=== PATIENT | female | born 1965 | race Caucasian/White ===

== ENCOUNTER 2016-10-12 13:37 | Emergency (ER) | payer OTHER ==
[~2016-10-12] VITALS: Ht 175.3 cm; Wt 74.8 kg
[~2016-10-12 13:37] MED LIST: ASPI81CT89 PO
[2016-10-12 14:28] VITALS: BP 135/88
--- NOTE | 2016-10-12 14:41 | NUR ---
51/F BIB SELF C/O RIGHT HIP & THROBBING PAIN RADIATES TO RIGHT THIGH LEFT LOWER ABD PAIN 8/10,INTERMITTENT.Hx RIGHT HIP OSTEOARTHRITIS, LAP JC, UMBILICAL HERNIA REPAIR, HYSTERECTOMY; STATES SHE HAD SBO, ADHESIONS AND MASS REMOVAL RIGHT LOWER ABD 5-6 YEARS AGO. PT STATES HAS HAD DIARRHEA BUT DENIES N/V. SKIN IS PINK/WARM/DRY; AAOX4 WITH EVEN AND STEADY GAIT; LUNGS CLEAR BL; HR EVEN AND REGULAR; PT DENIES ANY FEVER, CP, SOB, OR COUGH AT THIS TIME; PATIENT STATES PAIN OF 8/10 AT THIS TIME; VSS; PATIENT POSITIONED FOR COMFORT; HOB ELEVATED; BEDRAILS UP X2; BED DOWN. ER MD MADE AWARE OF PT STATUS.
[2016-10-12 14:51] LABS: BASOPHILS # (AUTO) 0.1 K/uL (0.00-0.22); EOSINOPHILS # (AUTO) 0.1 K/uL (0-0.4); HEMATOCRIT 40.7 % (36-48); HEMOGLOBIN 13.8 g/dL (12.0-16.0); LYMPHOCYTES # (AUTO) 1.8 K/uL (2.5-16.5); LYMPHOCYTES % (AUTO) 18.3 % (20.5-51.1); MEAN CORPUSCULAR HEMOGLOBIN 29 pg (27-31); MEAN CORPUSCULAR HGB CONC 34 g/dL (33-37); MEAN CORPUSCULAR VOLUME 85 fL (80-94); MONOCYTES # (AUTO) 0.4 K/uL (0.8-1.0); MONOCYTES % (AUTO) 3.9 % (1.7-9.3); NEUTROPHILS # (AUTO) 7.6 K/uL (1.8-7.7); NEUTROPHILS % (AUTO) 75.8 % (42.2-75.2); PLATELET COUNT (AUTO) 185 K/uL (140-450); RED BLOOD CELL COUNT(AUTO) 4.78 MIL/uL (4.20-5.40); RED CELL DISTRIBUTION WIDTH 11.9 % (11.6-13.7)
[2016-10-12 15:16] LABS: ANION GAP 12.8 (8-16); CARBON DIOXIDE 29.8 mmol/L (21-32); CREATININE 0.9 mg/dL (0.6-1.3); POTASSIUM 3.6 mmol/L (3.5-5.1)
[2016-10-12 15:23] LABS: ALBUMIN 3.8 g/dL (3.4-5.0); TOTAL BILIRUBIN 0.3 mg/dL (0.0-1.0); TOTAL PROTEIN, SERUM 7.3 g/dL (6.4-8.2)
--- NOTE | 2016-10-12 15:28 | NUR ---
PT RETURNED FROM CT VIA W/C ACCOMPANIED BY VENUE MANAGER.
--- NOTE | 2016-10-12 15:28 | NUR ---
PT RETURNED TO BED 7 AT THIS TIME; REPORT RECIEVED FROM AMERICA MENDES; TRANSFER OF CARE AT THIS TIME.
--- NOTE | 2016-10-12 16:48 | NUR ---
PATIENT LEFT WITHOUT DISCHARGE INSTRUCTIONS AND PERSCRIPTION. DR MOHR NOTIFIED.
[2016-10-12 16:54] VITALS: BP 150/87
== END 2016-10-12 16:48 | disposition home or self-care (01) ==
LOC: MED 13:37
DX: G89.29 Other chronic pain (principal); M25.551 Pain in right hip; R10.32 Left lower quadrant pain; M79.604 Pain in right leg; I10 Essential (primary) hypertension; Z85.41 Personal history of malignant neoplasm of cervix uteri; Z90.49 Acquired absence of other specified parts of digestive tract; Z90.710 Acquired absence of both cervix and uterus; Z98.890 Other specified postprocedural states
CPT/HCPCS: 36415; 73700; 80053; 81002; 83690; 85025; 99285

== ENCOUNTER 2016-10-13 15:21 | Inpatient (IN) | payer OTHER ==
[~2016-10-13] VITALS: Ht 175.3 cm; Wt 74.8 kg
--- NOTE | 2016-10-13 15:45 | NUR ---
PATIENT AMBULATED TO BED 3 AT THIS TIME.
[2016-10-13 15:50] LABS: BASOPHILS # (AUTO) 0.2 K/uL (0.00-0.22); BASOPHILS % (AUTO) 1.8 % (0.0-2.0); EOSINOPHILS # (AUTO) 0.2 K/uL (0-0.4); EOSINOPHILS % (AUTO) 1.3 % (0.0-4.0); HEMATOCRIT 42.4 % (36-48); HEMOGLOBIN 13.5 g/dL (12.0-16.0); LYMPHOCYTES # (AUTO) 2.1 K/uL (2.5-16.5); LYMPHOCYTES % (AUTO) 18.1 % (20.5-51.1); MEAN CORPUSCULAR HEMOGLOBIN 27 pg (27-31); MEAN CORPUSCULAR HGB CONC 32 g/dL (33-37); MEAN CORPUSCULAR VOLUME 86 fL (80-94); MONOCYTES # (AUTO) 0.5 K/uL (0.8-1.0); MONOCYTES % (AUTO) 3.9 % (1.7-9.3); NEUTROPHILS # (AUTO) 8.8 K/uL (1.8-7.7); NEUTROPHILS % (AUTO) 74.9 % (42.2-75.2); PLATELET COUNT (AUTO) 195 K/uL (140-450); RED BLOOD CELL COUNT(AUTO) 4.95 MIL/uL (4.20-5.40); RED CELL DISTRIBUTION WIDTH 11.7 % (11.6-13.7); WHITE BLOOD COUNT (AUTO) 11.8 K/uL (4.8-10.8)
--- NOTE | 2016-10-13 15:50 | NUR ---
51F BIB DAUGHTER C/O RIGHT ABDOMINAL PAIN, SHARP, NON-RADIATING, 7/10 X 1 MONTH; ABDOMEN SOFT, TENDER, ACTIVE BOWEL SOUNDS X 4 QUADRANTS; PT DENIES N/V/D AT THIS TIME; PT SEEN AT [place] [facility] YESTERDAY FOR SAME SYMPTOMS; A&OX4, BL LUNG SOUNDS CLEAR, RR EVEN/UNLABORED, SKIN IS WARM/DRY/INTACT AT THIS TIME; PT NOTED W/ SMALL HEALED SCARS TO ABDOMEN/BELLY BUTTON; HX: 2010 (HERNIA, GALL BLADDER REMOVED, HYSTERECTOMY), , CERVIX REMOVED, AMBULATORY W/STEADY GAIT; PT RESTING IN BED W/ HOB ELEVATED AND IN LOWEST POSITION; POSITIONED FOR COMFORT; DAUGHTER AT BEDSIDE; ER MD MADE AWARE OF STATUS. WILL CONTINUE TO MONITOR.
[2016-10-13 15:55] VITALS: BP 163/96
[2016-10-13 16:10] LABS: ANION GAP 13.9 (8-16); CALCIUM 9.4 mg/dL (8.5-10.1); CARBON DIOXIDE 26.9 mmol/L (21-32); CREATININE 0.9 mg/dL (0.6-1.3); POTASSIUM 3.8 mmol/L (3.5-5.1)
[2016-10-13 16:16] LABS: ALBUMIN 4.2 g/dL (3.4-5.0); TOTAL BILIRUBIN 0.4 mg/dL (0.0-1.0); TOTAL PROTEIN, SERUM 7.5 g/dL (6.4-8.2)
--- NOTE | 2016-10-13 16:43 | NUR ---
ER MD DR. MOHR EVALUATING PT AT BEDSIDE.
[2016-10-13] MEDS ORDERED: MORPHINE SULFATE 4 MG/ML SYR IVP ONE (16:50)
--- NOTE | 2016-10-13 17:30 | NUR ---
Patient appears to be resting comfortably in bed. Vital Signs within normal limits. Respirations even and unlabored. WILL CONTINUE TO MONITOR.
--- NOTE | 2016-10-13 18:04 | NUR ---
REPORT GIVEN TO AMERICA MANZANARES.
--- NOTE | 2016-10-13 18:09 | NUR ---
Patient will be admitted to care of ( SURGICAL CONSULT DR. Perez). Admited to [facility]. Will go to room 111B. Belongings list completed. Report to AMERICA MANZANARES.
[2016-10-13] MEDS ORDERED: PIPER/TAZO 3.375GM/D5W PREMIX 50 ML IV ONE (18:10)
--- NOTE | 2016-10-13 18:14 | NUR ---
ER MD DR. MOHR RECIEVED CALL FROM SURGICAL CONSULT DR. Perez; RECIEVED ORDERS FOR ZOSYN; PT ALREADY TAKEN TO FLOOR; CALLED AMERICA MANZANARES; MEDICATION TO BE INFUSED AT [facility].
--- NOTE | 2016-10-13 18:18 | NUR ---
DKSYN ORDERED PER ER MD DR. MOHR NOT AVAILABLE IN [facility]; SPOKE WITH SANDRA IN PHARMACY; SANDRA WILL BRING MEDICATION TO MED SURG ROOM 111B. AMERICA MANZANARES NOTIFIED.
[2016-10-13 18:20] VITALS: BP 125/80
--- NOTE | 2016-10-13 18:20 | NUR ---
RECEIVED FROM ED AAOX4. NO SOB NOTED. NO C/O PAIN AT THIS TIME. IV TO LT HAND PATENT AND INTACT. VITAL SIGNS STABLE.
[2016-10-13] MEDS: PIPER/TAZO 3.375GM/D5W PREMIX 50 ML IV SCH ×2 (18:21→21:18)
--- NOTE | 2016-10-13 18:30 | NUR ---
ZOSYN IV NOT STARTED YET, STAT BLOOD CULTURE ORDERED FROM ED NOT DRAWN YET, PAM FROM LAB MADE AWARE.
--- NOTE | 2016-10-13 18:45 | NUR ---
CLARIFIED WITH DR. JEAN BAPTISTE OVER THE PHONE REGARDING PT'S CT ABD DONE IN ER YESTERDAY, STATED TO REPEAT CT ABD W/O CONTRAST TODAY SINCE PT IS ADMITTED. PT WHEELED TO CT DEPT IN STABLE CONDITION BY [email or web address].
[2016-10-13] MEDS ORDERED: MORPHINE SULFATE 4 MG/ML SYR IVP PRN (18:50)
[2016-10-13] MEDS ORDERED: MORPHINE SULFATE 2 MG/ML SYR IVP PRN (18:50)
[2016-10-13] MEDS ORDERED: ACETAMINOPHEN 325 MG TAB PO PRN (18:50)
[2016-10-13] MEDS ORDERED: ONDANSETRON 4 MG/2 ML VIAL IVP PRN (18:50)
--- NOTE | 2016-10-13 19:00 | NUR ---
PT BACK FROM CT DEPT IN STABLE CONDITION. BLOOD CULTURE DRAWN. WILL ENDORSE TO NEXT SHIFT NURSE TO CONTINUE WITH THE ADMISSION PROCESS.
--- NOTE | 2016-10-13 19:30 | NUR ---
RECEIVED REPORT FROM DAY RN AT BEDSIDE, PATIENT IS AAOX4 ON ROOM AIR, NO SOB OR SIGN OF DISTRESS, PATIENT SKIN IS INTACT, PATIENT DENIES PAIN AT THIS TIME, IV TO LEFT HAND PATENT AND INTACT, DISCUSSED PLAN OF CARE WITH PATIENT, PATIENT VERBALIZED UNDERSTANDING, SAFETY MEASURES CHECKED, CALL LIGHT WITHIN REACH. WILL CONTINUE TO MONITOR. VITAL SIGNS STABLE.
[2016-10-13 19:40] LABS: APPEARANCE,URINE CLEAR (CLEAR); BILIRUBIN,URINE NEGATIVE (NEGATIVE); BLOOD, URINE NEGATIVE (NEGATIVE); COLOR,URINE YELLOW (YELLOW); LEUKOCYTE ESTERASE ,URINE NEGATIVE (NEGATIVE); NITRITE, URINE NEGATIVE (NEGATIVE); PROTEIN,URINE NEGATIVE (NEGATIVE); UGLUCOSE NEGATIVE (NEGATIVE); UROBILINOGEN,URINE 0.2 EU/dL (0.2 - 1)
[2016-10-13 19:54] LABS: BACTERIA,URINE RARE /HPF (None Seen); MUCUS,URINE 2+ /LPF (None Seen); RBC,URINE 0-3 /HPF (0-5); SQUAMOUS EPITHELIAL CELL,UR 0-3 /LPF (0-3 (FEW)); WBC,URINE 0-3 /HPF (0-5)
--- NOTE | 2016-10-13 20:45 | NUR ---
IV ANTIBIOTICS ADMINISTERED PER MD ORDER
[2016-10-13] MEDS ORDERED: INFLUENZA VIRUS VACCINE QUAD 0.5 ML SYR IMVAC PRN (21:40)
--- NOTE | 2016-10-13 21:45 | NUR ---
OH IN TO SEE PATIENT
--- NOTE | 2016-10-13 22:20 | NUR ---
PATIENT SEEN BY DR MARKEL MD EXPLAINED TO PATIENT SHE DID NOT NEED SURGERY BUT GAVE HER THE OPTION TO HAVE IT ANYWAY OR SHE CAN GO HOME, PATIENT OPTED TO GO HOME. PATIENT STATED, " I HAVE A DISABLED CHILD AT HOME AND WOULD LIKE TO LEAVE TONIGHT." PATIENT CALLED DAUGHTER TO PICK HER UP AND BRING CLOTHES. NOTIFIED DR SIGALA, COLLAR SETTER OVERLOCK FOR DR RAMIREZ, DR SIGALA STATED SHE CAN NOT DISCHARGE PATIENT IF ATTENDING HAS NOT SEEN PATIENT, BUT IF PATIENT WANTS TO LEAVE SHE CAN SIGN OUT AMA. EXPLAINED TO PATIENT OPTIONS GIVEN BY THE DOCTOR AND PATIENT WANTED TO LEAVE AND SIGN OUT AMA. EXPLAINED RISKS OF LEAVING AMA, PATIENT VERBALIZED UNDERSTANDING, PATIENT SIGNED AMA PAPERWORK, WRIST BAND REMOVED, IV REMOVED TIP INTACT, BELONGINGS WITH PATIENT, PATIENT LEFT IN PRIVATE VEHICLE WITH FAMILY MEMBER. .
--- NOTE | 2016-10-14 12:59 | NUR ---
CM NOTE RETRO REVIEW FAXED TO [facility] (FAX# [phone], C: [phone]) AND [facility] (FAX# [phone], ATTN: LILLY [phone])
== END 2016-10-13 22:20 | disposition left against medical advice (07) | DRG 254 ==
LOC: MED 15:21 → MTU 17:57
PROVIDERS: ADMIT Internal Medicine Pulmonary Disease; ATTEND Internal Medicine Pulmonary Disease
DX: K35.80 Unspecified acute appendicitis (principal); I10 Essential (primary) hypertension; K38.1 Appendicular concretions; D72.829 Elevated white blood cell count, unspecified; M19.90 Unspecified osteoarthritis, unspecified site; Z53.21 Procedure and treatment not carried out due to patient leaving prior to being seen by health care provider; Z90.49 Acquired absence of other specified parts of digestive tract; Z90.710 Acquired absence of both cervix and uterus; Z98.890 Other specified postprocedural states; Z79.82 Long term (current) use of aspirin; Z79.899 Other long term (current) drug therapy; Z85.41 Personal history of malignant neoplasm of cervix uteri
CPT/HCPCS: 36415; 80053; 81001; 85025; 87040; 87081; 96374; 99285; J0696; J2270; J2543; J7030; J7060

== ENCOUNTER 2017-01-01 14:10 | Emergency (ER) | payer OTHER ==
[~2017-01-01] VITALS: Ht 175.3 cm; Wt 76.7 kg
[2017-01-01 14:23] VITALS: BP 132/94
--- NOTE | 2017-01-01 15:35 | NUR ---
PT TO OVERFLOW.
--- NOTE | 2017-01-01 15:37 | NUR ---
PATIENT PRESENTS TO ED WITH C/O RIGHT ELBOW PAIN . PT STATES SHE HIT HER RIGHT ELBOW AGAINST THE CAR DOOR THIS AM. . DENIES N/V/D; BRUISING NOTED TO RIGHT ELBOW, SKIN IS OTHERWISE PINK/WARM/DRY; AAOX4 WITH EVEN AND STEADY GAIT; LUNGS CLEAR BL; HR EVEN AND REGULAR; PT DENIES ANY FEVER, CP, SOB, OR COUGH AT THIS TIME; PATIENT STATES PAIN OF 5/10 AT THIS TIME; VSS; PATIENT POSITIONED FOR COMFORT; ER MD MADE AWARE OF PT STATUS.
--- NOTE | 2017-01-01 15:39 | NUR ---
ANDRZEJ Jara. EVALUATING PT IN TRIAGE.
[2017-01-01 15:44] VITALS: BP 132/94
--- NOTE | 2017-01-01 15:45 | NUR ---
PATIENT LEFT ER PRIOR TO RECIEVING DISCHARGE INSTRUCTIONS.
== END 2017-01-01 15:45 | disposition home or self-care (01) ==
LOC: MED 14:10
DX: S50.01XA Contusion of right elbow, initial encounter (principal); W22.8XXA Striking against or struck by other objects, initial encounter; Y93.89 Activity, other specified; Y92.89 Other specified places as the place of occurrence of the external cause; Y99.8 Other external cause status
CPT/HCPCS: 73080; 99284

== ENCOUNTER 2017-01-23 14:09 | Emergency (ER) | payer OTHER ==
[~2017-01-23] VITALS: Ht 177.8 cm; Wt 77.7 kg
[2017-01-23 14:13] VITALS: BP 121/76
--- NOTE | 2017-01-23 14:43 | NUR ---
Patient taken from ED lobby to XRAY via wheelchair by tech.
--- NOTE | 2017-01-23 15:33 | NUR ---
Patient ambulated to OF to be evaluated as fast track by Dr. De León.
--- NOTE | 2017-01-23 15:35 | NUR ---
FREDDYD EXPLAINED TO PATIENT RESULTS OF LT. FOOT XR
[2017-01-23 15:37] VITALS: BP 130/99
== END 2017-01-23 15:37 | disposition home or self-care (01) ==
LOC: MED 14:09
DX: M77.8 Other enthesopathies, not elsewhere classified (principal); M79.675 Pain in left toe(s); Z88.5 Allergy status to narcotic agent
CPT/HCPCS: 73630; 99284

== ENCOUNTER 2017-09-19 15:17 | Emergency (ER) | payer SELFPAY ==
--- NOTE | 2017-09-19 15:49 | NUR ---
PATIENT CALLED FROM LOBBY NO ANSWER.
== END 2017-09-19 15:49 | disposition left against medical advice (07) ==
LOC: MED 15:17
DX: M79.643 Pain in unspecified hand (principal); Z53.21 Procedure and treatment not carried out due to patient leaving prior to being seen by health care provider

== ENCOUNTER 2017-11-07 14:18 | Emergency (ER) | payer OTHER ==
[~2017-11-07] VITALS: Ht 175.3 cm; Wt 82.2 kg
[2017-11-07 14:22] VITALS: BP 159/95
--- NOTE | 2017-11-07 14:32 | NUR ---
PT AMBULATES TO BED 3
--- NOTE | 2017-11-07 14:45 | NUR ---
PATIENT PRESENTS TO ED WITH C/O RLQ, RT THIGH PAIN X 1 WK, INTERMITTENT LUQ PAIN "SHOCKING PAIN WHEN URINATING" X 1 MONTH; TAKING TYLENOL;SKIN IS PINK/WARM/DRY; AAOX4 WITH EVEN AND STEADY GAIT; LUNGS CLEAR BL; HR EVEN AND REGULAR; PT DENIES ANY FEVER, CP, SOB, OR COUGH AT THIS TIME; PATIENT POSITIONED FOR COMFORT; HOB ELEVATED; BEDRAILS UP X2; BED DOWN. ER MD MADE AWARE OF PT STATUS.
--- NOTE | 2017-11-07 15:08 | NUR ---
ULTRASOUND AT BEDSIDE AT THIS TIME.
[2017-11-07 15:13] LABS: APPEARANCE,URINE CLEAR (CLEAR); BILIRUBIN,URINE NEGATIVE (NEGATIVE); BLOOD, URINE TRACE-I (NEGATIVE); COLOR,URINE YELLOW (YELLOW); LEUKOCYTE ESTERASE ,URINE NEGATIVE (NEGATIVE); NITRITE, URINE NEGATIVE (NEGATIVE); UGLUCOSE NEGATIVE (NEGATIVE)
[2017-11-07 15:44] LABS: RBC,URINE NONE SEEN /HPF (0-5); WBC,URINE NONE SEEN /HPF (0-5)
[2017-11-07 16:06] VITALS: BP 159/95
--- NOTE | 2017-11-07 16:06 | NUR ---
Patient discharged with v/s stable. Written and verbal after care instructions given and explained. Patient verbalized understanding. Ambulatory with steady gait. All questions addressed prior to discharge. Advised to follow up with PMD.
== END 2017-11-07 16:06 | disposition home or self-care (01) ==
LOC: MED 14:18
DX: R10.31 Right lower quadrant pain (principal); M76.31 Iliotibial band syndrome, right leg; Z88.6 Allergy status to analgesic agent; Z79.82 Long term (current) use of aspirin; Z90.89 Acquired absence of other organs
CPT/HCPCS: 76830; 81001; 99285

== ENCOUNTER 2017-12-05 13:21 | Emergency (ER) | payer OTHER ==
[~2017-12-05] VITALS: Ht 175.3 cm; Wt 82.2 kg
[2017-12-05 13:32] VITALS: BP 138/98
--- NOTE | 2017-12-05 13:38 | NUR ---
PT TAKEN IN WHEELCHAIR TO BED 2
--- NOTE | 2017-12-05 13:40 | NUR ---
PATIENT PRESENTS TO ED WITH COMPLAINTS OF POSSIBLE FRACTURE OF RIGHT ANKLE. PATIENT STATED SHE FELL. CAP REFILL ON RIGHT BIG TOE <3 SEC. DENIES N/V/D; SKIN IS PINK/WARM/DRY; AAOX4 WITH EVEN AND STEADY GAIT; LUNGS CLEAR BL; HR EVEN AND REGULAR; PT DENIES ANY FEVER, CP, SOB, OR COUGH AT THIS TIME; PATIENT STATES PAIN OF 8/10 AT THIS TIME; VSS; PATIENT POSITIONED FOR COMFORT; HOB ELEVATED; BEDRAILS UP X2; BED DOWN. ER MD MADE AWARE OF PT STATUS.
[2017-12-05] MEDS ORDERED: IBUPROFEN 600 MG TAB PO ONE (14:10)
[2017-12-05 14:27] VITALS: BP 138/98
== END 2017-12-05 14:45 | disposition home or self-care (01) ==
LOC: MED 13:21
DX: S99.922A Unspecified injury of left foot, initial encounter (principal); Z88.5 Allergy status to narcotic agent; Z79.899 Other long term (current) drug therapy; X58.XXXA Exposure to other specified factors, initial encounter; Y93.89 Activity, other specified; Y92.89 Other specified places as the place of occurrence of the external cause; Y99.8 Other external cause status
CPT/HCPCS: 73630; 99284

== ENCOUNTER 2018-06-29 11:17 | Emergency (ER) | payer OTHER ==
[~2018-06-29] VITALS: Ht 172.7 cm; Wt 87.5 kg
[2018-06-29 11:24] VITALS: BP 153/98
[2018-06-29] MEDS: KETOROLAC 60 MG/2 ML VIAL IM ONE (12:13)
[2018-06-29 13:50] VITALS: BP 145/92
== END 2018-06-29 13:51 | disposition home or self-care (01) ==
LOC: MED 11:17
DX: I73.9 Peripheral vascular disease, unspecified (principal); Z79.82 Long term (current) use of aspirin; Z88.5 Allergy status to narcotic agent
CPT/HCPCS: 93930; 96372; 99284; J1885; Q0092

== ENCOUNTER 2018-10-18 12:31 | Emergency (ER) | payer OTHER ==
[~2018-10-18] VITALS: Ht 175.3 cm; Wt 81.6 kg
[~2018-10-18 12:31] MED LIST changes: +ASPI-1718 PO; -ASPI81CT89 PO
--- NOTE | 2018-10-18 13:08 | NUR ---
Patient ambulated to bed 2. RN evaluating patient at bedside.
--- NOTE | 2018-10-18 13:17 | NUR ---
PT BIB SELF C/O R FOOT & ANKLE PAIN & SLIGHTLY SWELLING X 1 WEEK. PT REPORTS APPOINTMENT FOR ANGIOGRAM THIS TUESDAY, BUT PAIN IS TOO SEVERE TO WAIT. PT REPORTS CONSTANT SHARP PAIN IN ANTERIOR LATERAL ANKLE AND FOOT AT 9/10. MILD SWELLING NOTED ON ANKLE, ANKLE WARM TO TOUCH, NO REDNESS OR DEFORMITY NOTED. +CMS. VSS. ER MD TO SEE PT. MED HX: INTERMITT CLUADATION BILAT LEGS, PVD, LEFT 5TH TOE JENNIFER (07/28/18) MED: CAN'T REMEMBER
[2018-10-18 15:51] VITALS: BP 135/83
== END 2018-10-18 15:51 | disposition home or self-care (01) ==
LOC: MED 12:31
DX: M25.571 Pain in right ankle and joints of right foot (principal); R03.0 Elevated blood-pressure reading, without diagnosis of hypertension; Z79.82 Long term (current) use of aspirin; Z88.5 Allergy status to narcotic agent
CPT/HCPCS: 73610; 93971; 99284; Q0092

== ENCOUNTER 2019-02-09 15:39 | Emergency (ER) | payer OTHER ==
[~2019-02-09] VITALS: Ht 175.3 cm; Wt 83.0 kg
[2019-02-09 15:42] VITALS: BP 131/81
--- NOTE | 2019-02-09 15:47 | NUR ---
PT AMBULATED TO ER BED 02
[2019-02-09 15:48] VITALS: BP 131/81
--- NOTE | 2019-02-09 15:56 | NUR ---
53F C/O OF A "LUMP" THAT'S GROWING IN L THIGH X MONTHS AND L UPPER ARM X1 YEAR. PT STATES SAME LUMP IN LT UA WAS PRESENT AND SMALL WHEN SHE WAS A CHILD, DX WITH LYMPHOMA. PT STATES THEY HAVE GOTTEN BIGGER AND ARE NOW AFFECTING HER USE OF THE LIMBS- LIMITED ROM IN LEFT ARM. SKIN INTACT. LT UA LUMP APPROXIMATELY [id number], MOBILE, MILD TENDERNESS TO PALPATION. FEELS ENCAPSULATED. LT THIGH LUMP LESS THAN [id number], MOBILE, NON-TENDER. HX: INTERMITTENET CLAUDICATION RX: "A BLOOD THINNER" Addendum: 02/09/19 at 1607 by FRANCISCO CLARIFIED IF PATIENT HAS PAD. PT DENIES AND STATES IT IS A PROBLEM WITH THE MUSCLE, RATHER THAN THE ARTERIES. STATES THE CONDITION IS "INTERMITTENT CLAUDICATION"
--- NOTE | 2019-02-09 16:47 | NUR ---
PATIENT LEFT WITHOUT BEING SEEN BY DR. BAZAN. NO FURTHER CARE PROVIDED FOR PATIENT.
--- NOTE | 2019-02-09 16:47 | NUR ---
PATIENT ELOPED FROM FACILITY. DISCHARGE INSTRUCTIONS NOT GIVEN TO PATIENT. DR. BAZAN NOTIFIED.
== END 2019-02-09 16:47 | disposition left against medical advice (07) ==
LOC: MED 15:39
DX: R22.42 Localized swelling, mass and lump, left lower limb (principal); R22.32 Localized swelling, mass and lump, left upper limb; Z53.21 Procedure and treatment not carried out due to patient leaving prior to being seen by health care provider

== ENCOUNTER 2019-07-03 10:05 | Emergency (ER) | payer OTHER ==
[~2019-07-03] VITALS: Ht 162.6 cm; Wt 92.1 kg
[2019-07-03 10:10] VITALS: BP 189/99
--- NOTE | 2019-07-03 10:10 | NUR ---
Pt ambulated to bed 8.
--- NOTE | 2019-07-03 10:24 | NUR ---
Patient being evaluated by DR BAZAN at bedside.
--- NOTE | 2019-07-03 10:26 | NUR ---
Called code brain.
--- NOTE | 2019-07-03 10:30 | NUR ---
BIB SON W C/O SUDDEN ONSET CONFUSION & "HEART FEELING FUNNY" STARTING APPROX. 8AM THIS MORNING. PER PT SON, SHE HAS BEEN REPEATING HERSELF AND ACTING IF SHE IS CONFUSED SINCE SHE WOKE UP TODAY. NO SLURRED SPEECH, NO FACIAL DROOP NOTED. RUE/RLE GOOD STRENGTH, FIELD COORDINATOR/PUSH STRONG AND EQUAL, LUE/LLE DISPLAYS VERY MILD WEAKNESS. PT APPEARS CONFUSED BUT IS ANSWERING QUESTIONS APPROPRIATELY, AWARE OF NAME, , PLACE, ABLE TO RECALL TODAYS EVENTS. FSBS 122. DENIES PAIN, N/V. PT IS TACHYCARDIC AT 125BPM, BP ELEVATED AT 189/99. O2 99% RA. NO LABORED BREATHING NOTED. BED IN LOW POSITION, SIDE RAIL UP X2 FOR PT SAFTEY, PT PLACED IN GOWN AND ON SNUBBER AT THIS TIME. PT SON AT BEDSIDE.
--- NOTE | 2019-07-03 10:38 | NUR ---
Patient taken to CT scan via gurney by [email or web address], accompanied by RN.
--- NOTE | 2019-07-03 10:48 | NUR ---
Patient returned from CT and placed in bed 8.
[2019-07-03 11:04] LABS: BASOPHILS % (AUTO) 0.4 % (0.0-2.0); EOSINOPHILS % (AUTO) 0.2 % (0.0-4.0); HEMATOCRIT 44.7 % (36-48); HEMOGLOBIN 14.6 g/dL (12.0-16.0); LYMPHOCYTES # (AUTO) 1.7 K/uL (2.5-16.5); MEAN CORPUSCULAR HEMOGLOBIN 29 pg (27-31); MEAN CORPUSCULAR HGB CONC 33 g/dL (33-37); MEAN CORPUSCULAR VOLUME 88.7 fL (80-94); MONOCYTES # (AUTO) 0.3 K/uL (0.8-1.0); MONOCYTES % (AUTO) 3.7 % (1.7-9.3); NEUTROPHILS # (AUTO) 6.8 K/uL (1.8-7.7); NEUTROPHILS % (AUTO) 76.7 % (42.2-75.2); PLATELET COUNT (AUTO) 195 K/uL (140-450); RED BLOOD CELL COUNT(AUTO) 5.04 MIL/uL (4.20-5.40); RED CELL DISTRIBUTION WIDTH 12.3 % (11.6-13.7); WHITE BLOOD COUNT (AUTO) 8.9 K/uL (4.8-10.8)
--- NOTE | 2019-07-03 11:07 | NUR ---
PT ASSISTED TO RESTROOM VIA WHEELCHAIR. PT IS AMBULATORY WITH A STEADY GAIT WHEN WALKING FROM WHEELCHAIR OUTSIDE RESTROOM DOOR TO TOILET.
[2019-07-03] MEDS ORDERED: PEP15L PO (11:15)
[2019-07-03 11:49] LABS: PROTHROMBIN TIME 9.5 secs (10.8-13.4)
--- NOTE | 2019-07-03 11:55 | NUR ---
PT RESTING IN BED, NO NEW NEEDS AT THIS TIME
[2019-07-03 12:10] LABS: POTASSIUM 3.5 mmol/L (3.5-5.1)
[2019-07-03 12:11] LABS: ANION GAP 16.4 (8-16); CARBON DIOXIDE 26.1 mmol/L (21-32); TOTAL BILIRUBIN 0.3 mg/dL (0.0-1.0)
[2019-07-03 12:12] LABS: ALBUMIN 4.1 g/dL (3.4-5.0)
--- NOTE | 2019-07-03 12:19 | NUR ---
TAWNYA DEPARTED WITH PT AT THIS TIME. ATTEMPTED TO CONTACT [facility] TO GIVE REPORT, NO ANSWER. WILL TRY AGAIN
--- NOTE | 2019-07-03 12:19 | NUR ---
Patient to be transferred to [facility]. Is being transferred due to NEED FOR HIGHER LEVEL OF CARE. Receiving facility has accepting physician and available space. ER physician has signed transfer form. Patient or responsible constitution party has agreed to transfer and signed form. Patient belongings inventoried and will be sent with patient. Copy of nursing notes, lab reports, EKG, Physicians Orders and X-rays to be sent with patient. Report called to AMERICA DEL RIO at receiving facility.
[2019-07-03 12:20] VITALS: BP 147/91
[2019-07-03 12:21] LABS: APPEARANCE,URINE CLEAR (CLEAR); BILIRUBIN,URINE NEGATIVE (NEGATIVE); BLOOD, URINE NEGATIVE (NEGATIVE); COLOR,URINE YELLOW (YELLOW); LEUKOCYTE ESTERASE ,URINE NEGATIVE (NEGATIVE); NITRITE, URINE NEGATIVE (NEGATIVE); UGLUCOSE NEGATIVE (NEGATIVE)
[2019-07-03 12:49] LABS: BARBITURATE, URINE NEG. ng/ml (NEG <=200); BENZODIAZEPINE, URINE NEG. ng/mL (NEG <=200); CANNABINOID, URINE NEG. ng/mL (NEG <=50); COCAINE, URINE NEG. ng/mL (NEG <=300); OPIATE, URINE NEG. ng/mL (NEG <=2000); PHENCYCLIDINE SCREEN,URINE NEG. ng/mL (NEG <=25)
== END 2019-07-03 12:19 | disposition short-term general hospital (02) ==
LOC: MED 10:05
DX: I10 Essential (primary) hypertension (principal); R41.82 Altered mental status, unspecified; Z86.79 Personal history of other diseases of the circulatory system; Z90.49 Acquired absence of other specified parts of digestive tract; Z90.710 Acquired absence of both cervix and uterus; Z89.422 Acquired absence of other left toe(s); Z79.82 Long term (current) use of aspirin; Z79.899 Other long term (current) drug therapy; Z88.5 Allergy status to narcotic agent
CPT/HCPCS: 36415; 70450; 71045; 80053; 80305; 81003; 81025; 84484; 85025; 85610; 85730; 93005; 99291; Q0092; 99285

== ENCOUNTER 2019-09-03 13:29 | Emergency (ER) | payer OTHER ==
[~2019-09-03] VITALS: Ht 175.3 cm; Wt 81.6 kg
[~2019-09-03 13:29] MED LIST changes: -ASPI-1718 PO; +ASPI-1822 PO; +PEP15L PO
[2019-09-03 13:51] VITALS: BP 153/99
--- NOTE | 2019-09-03 13:54 | NUR ---
WAIT AT LOBBY.
--- NOTE | 2019-09-03 15:15 | NUR ---
54 Y/O FEMALE PRESENTS TO THE ER WITH LEFT INDEX FINGER PAIN, AND STIFFNESS X1 WEEK. PT DENIES ANY INJURIES OR FALLS TO LEFT INDEX FINGER. PT HAS HAD ABOUT 10 SURGERIES TO THE LEFT INDEX FINGER FOR GANGLION CYST REMOVAL. POSITIVE CMS. VSS, SITTING UPRIGHT CALM, AND PLEASANT. SIDERAIL X1, WILL CONTINUE TO MONITOR.
[2019-09-03] MEDS ORDERED: KETOROLAC 30 MG/ML VIAL IM ONE (15:50)
--- NOTE | 2019-09-03 16:06 | NUR ---
LEFT INDEX FINGER SPLINT PLACED BY LEANDER FUENTES. POSITIVE PULSES, CAP REFILL LESS THAN 3 SEC. PT VERBALIZES UNDERSTANDING OF SPLINT WEAR.
[2019-09-03 16:16] VITALS: BP 153/99
== END 2019-09-03 16:17 | disposition home or self-care (01) ==
LOC: MED 13:29
DX: G89.29 Other chronic pain (principal); M79.645 Pain in left finger(s); Z79.899 Other long term (current) drug therapy; Z88.5 Allergy status to narcotic agent
CPT/HCPCS: 73130; 99283

== ENCOUNTER 2019-11-01 13:04 | Emergency (ER) | payer OTHER ==
[~2019-11-01] VITALS: Ht 175.3 cm; Wt 84.4 kg
[2019-11-01 13:12] VITALS: BP 152/94
--- NOTE | 2019-11-01 13:15 | NUR ---
PT AMB TO BED 3 WITH STEADY GAIT Addendum: 11/01/19 at 1318 by [email or web address] BED 2
--- NOTE | 2019-11-01 13:20 | NUR ---
Dr. Bales evaluating pt at bedside
--- NOTE | 2019-11-01 13:23 | NUR ---
54/F C/O R RIB PAIN UNDER THE RT BREAST X 4 DAYS. DENIES INJURY. PAIN CONSTANT, FEELS LIKE "BONE RUBBING ON BONE". CURRENT PAIN 02/24. TOOK TYLENOL WITHOUT RELIEF. PMH- PAD, CAROTID STENOSIS, HYPERCHOLESTEROLEMIA, CHOLECYSTECTOMY 2009, UMBILICAL HERNIA 2010, PARTIAL HYSTERECFTOMY 2010 RX- ASPIRIN 81 MG
[2019-11-01] MEDS ORDERED: KETOROLAC 15 MG/ML VIAL IVP ONE (13:25)
--- NOTE | 2019-11-01 13:30 | NUR ---
BLOOD DRAWN BEDSIDE AND HANDED TO [employer] SALES ASSOCIATE.
--- NOTE | 2019-11-01 13:36 | NUR ---
AMB TO BATHROOM STEADY GAIT
--- NOTE | 2019-11-01 13:38 | NUR ---
CHEMIST PHYSICAL AT BEDSIDE
[2019-11-01 13:42] LABS: BASOPHILS # (AUTO) 0.1 K/uL (0.00-0.22); BASOPHILS % (AUTO) 1.4 % (0.0-2.0); EOSINOPHILS # (AUTO) 0.1 K/uL (0-0.4); EOSINOPHILS % (AUTO) 1.1 % (0.0-4.0); HEMATOCRIT 41.8 % (36-48); HEMOGLOBIN 13.7 g/dL (12.0-16.0); LYMPHOCYTES # (AUTO) 2.4 K/uL (2.5-16.5); LYMPHOCYTES % (AUTO) 33.6 % (20.5-51.1); MEAN CORPUSCULAR HEMOGLOBIN 29 pg (27-31); MEAN CORPUSCULAR HGB CONC 33 g/dL (33-37); MEAN CORPUSCULAR VOLUME 88.9 fL (80-94); MONOCYTES # (AUTO) 0.5 K/uL (0.8-1.0); MONOCYTES % (AUTO) 6.6 % (1.7-9.3); NEUTROPHILS % (AUTO) 57.3 % (42.2-75.2); PLATELET COUNT (AUTO) 180 K/uL (140-450); RED BLOOD CELL COUNT(AUTO) 4.71 MIL/uL (4.20-5.40); RED CELL DISTRIBUTION WIDTH 12.6 % (11.6-13.7)
[2019-11-01 13:59] LABS: PROTHROMBIN TIME 9.5 secs (10.8-13.4)
[2019-11-01 14:01] LABS: ALBUMIN 3.7 g/dL (3.4-5.0); ANION GAP 12.7 (8-16); CARBON DIOXIDE 28.1 mmol/L (21-32); POTASSIUM 3.8 mmol/L (3.5-5.1); TOTAL BILIRUBIN 0.3 mg/dL (0.0-1.0)
[2019-11-01 14:31] LABS: D-DIMER < 100 ng/ml (0-400)
[2019-11-01 15:02] VITALS: BP 152/94
--- NOTE | 2019-11-01 15:02 | NUR ---
Patient discharged with v/s stable. Written and verbal after care instructions given and explained. Patient verbalized understanding. Ambulatory with steady gait. All questions addressed prior to discharge. Advised to follow up with PMD. PT INSTRUCTED TO TAKE TYLENOL AND IBUPROFEN PRN FOR PAIN.
== END 2019-11-01 15:02 | disposition home or self-care (01) ==
LOC: MED 13:04
DX: R07.89 Other chest pain (principal); Z88.5 Allergy status to narcotic agent; Z90.710 Acquired absence of both cervix and uterus; Z90.49 Acquired absence of other specified parts of digestive tract; Z89.429 Acquired absence of other toe(s), unspecified side; Z79.82 Long term (current) use of aspirin; Z79.899 Other long term (current) drug therapy
CPT/HCPCS: 36415; 71045; 80053; 83690; 83880; 84484; 85025; 85379; 85610; 85730; 93005; 96374; 99285; J1885; Q0092

== ENCOUNTER 2020-03-04 12:32 | Emergency (ER) | payer OTHER ==
[~2020-03-04] VITALS: Ht 175.3 cm; Wt 83.9 kg
[2020-03-04 12:54] VITALS: BP 145/88
[2020-03-04 13:51] VITALS: BP 135/85
== END 2020-03-04 12:52 | disposition home or self-care (01) ==
LOC: MED 12:32
DX: M76.31 Iliotibial band syndrome, right leg (principal); M76.32 Iliotibial band syndrome, left leg; R03.0 Elevated blood-pressure reading, without diagnosis of hypertension; Z88.5 Allergy status to narcotic agent; Z79.82 Long term (current) use of aspirin; Z79.899 Other long term (current) drug therapy; Z90.49 Acquired absence of other specified parts of digestive tract; Z98.890 Other specified postprocedural states; Z89.429 Acquired absence of other toe(s), unspecified side; Z90.710 Acquired absence of both cervix and uterus
CPT/HCPCS: 81002; 99282

== ENCOUNTER 2020-09-18 13:51 | Emergency (ER) | payer OTHER ==
[~2020-09-18] VITALS: Ht 175.3 cm; Wt 83.0 kg
[2020-09-18 13:56] VITALS: BP 161/85
--- NOTE | 2020-09-18 14:19 | NUR ---
55YO F BIBS C/O WORSENING RIGHT ILIAC PAIN X 2 DAYS. PT STATES 9/10 SHARP PAIN WORSE AT NIGHT. TAKES TYLENOL WITH NO RELIEF. PT ALSO COMPLAINS OF INCONTINENCE X 1 MONTH, WORSENING IN THE LAST 2-3 WEEKS. DENIES FLANK PAIN, HEMATURIA. DENIES FEVER, COUGH. PMH: NONE MEDS: NONE ALLERGY: MORPHINE
[2020-09-18 15:04] LABS: BASOPHILS # (AUTO) 0.1 K/uL (0.00-0.22); BASOPHILS % (AUTO) 0.7 % (0.0-2.0); EOSINOPHILS # (AUTO) 0.1 K/uL (0-0.4); HEMATOCRIT 40.5 % (36-48); HEMOGLOBIN 13.4 g/dL (12.0-16.0); LYMPHOCYTES # (AUTO) 2.5 K/uL (2.5-16.5); LYMPHOCYTES % (AUTO) 29.6 % (20.5-51.1); MEAN CORPUSCULAR HEMOGLOBIN 29 pg (27-31); MEAN CORPUSCULAR HGB CONC 33 g/dL (33-37); MEAN CORPUSCULAR VOLUME 87.4 fL (80-94); MONOCYTES # (AUTO) 0.7 K/uL (0.8-1.0); MONOCYTES % (AUTO) 7.9 % (1.7-9.3); NEUTROPHILS # (AUTO) 5.2 K/uL (1.8-7.7); NEUTROPHILS % (AUTO) 60.8 % (42.2-75.2); PLATELET COUNT (AUTO) 194 K/uL (140-450); RED BLOOD CELL COUNT(AUTO) 4.64 MIL/uL (4.20-5.40); RED CELL DISTRIBUTION WIDTH 12.7 % (11.6-13.7); WHITE BLOOD COUNT (AUTO) 8.5 K/uL (4.8-10.8)
[2020-09-18 15:10] LABS: APPEARANCE,URINE CLEAR (CLEAR); BILIRUBIN,URINE NEGATIVE (NEGATIVE); BLOOD, URINE NEGATIVE (NEGATIVE); COLOR,URINE YELLOW (YELLOW); LEUKOCYTE ESTERASE ,URINE NEGATIVE (NEGATIVE); NITRITE, URINE NEGATIVE (NEGATIVE); PH,URINE 8.5 (5.0-9.0); UGLUCOSE NEGATIVE (NEGATIVE)
[2020-09-18 15:22] LABS: ANION GAP 9.7 (8-16); CARBON DIOXIDE 30.1 mmol/L (21-32); POTASSIUM 3.8 mmol/L (3.5-5.1)
[2020-09-18 15:23] LABS: ALBUMIN 3.8 g/dL (3.4-5.0); CREATININE 0.5 mg/dL (0.6-1.3); TOTAL BILIRUBIN 0.2 mg/dL (0.0-1.0)
--- NOTE | 2020-09-18 15:30 | NUR ---
PT REPORTS 8/10 PAIN ON R HIP, REQUESTING PAIN MANAGEMENT AT THIS TIME. FREDDYD MADE AWARE.
[2020-09-18] MEDS ORDERED: KETOROLAC 30 MG/ML VIAL IM ONE (15:50)
--- NOTE | 2020-09-18 16:10 | NUR ---
DR. ZHAO AT BEDSIDE
[2020-09-18] MEDS ORDERED: NAPR-54 PO (16:12)
[2020-09-18 16:25] VITALS: BP 154/82
== END 2020-09-18 16:25 | disposition home or self-care (01) ==
LOC: MED 13:51
DX: R10.2 Pelvic and perineal pain (principal); R10.9 Unspecified abdominal pain; Z88.5 Allergy status to narcotic agent; Z79.899 Other long term (current) drug therapy
CPT/HCPCS: 36415; 74176; 80053; 81003; 85025; 96372; 99284; J1885

== ENCOUNTER 2020-10-04 11:13 | Emergency (ER) | payer OTHER ==
[~2020-10-04] VITALS: Ht 175.3 cm; Wt 89.4 kg
[~2020-10-04 11:13] MED LIST changes: +NAPR-54 PO
[2020-10-04 11:18] VITALS: BP 129/91
[2020-10-04 11:54] VITALS: BP 129/91
== END 2020-10-04 11:45 | disposition home or self-care (01) ==
LOC: MED 11:13
DX: R21 Rash and other nonspecific skin eruption (principal); N64.4 Mastodynia; Z88.5 Allergy status to narcotic agent; Z79.899 Other long term (current) drug therapy
CPT/HCPCS: 99281

== ENCOUNTER 2020-11-22 16:39 | Emergency (ER) | payer OTHER ==
[~2020-11-22] VITALS: Ht 175.3 cm; Wt 81.6 kg
[2020-11-22 16:54] VITALS: BP 150/92
--- NOTE | 2020-11-22 16:58 | NUR ---
Patient to bed 7. RN evaluating the patient at bedside.
[2020-11-22] MEDS ORDERED: NACL 0.9% 1,000 ML IV ONE (17:15)
[2020-11-22] MEDS ORDERED: KETOROLAC 15 MG/ML VIAL IVP ONE (17:15)
[2020-11-22] MEDS ORDERED: cefTRIAXone 1,000 MG VIAL ONE (17:22)
[2020-11-22 17:35] LABS: BASOPHILS # (AUTO) 0.1 K/uL (0.00-0.22); BASOPHILS % (AUTO) 0.9 % (0.0-2.0); EOSINOPHILS # (AUTO) 0.1 K/uL (0-0.4); EOSINOPHILS % (AUTO) 1.3 % (0.0-4.0); HEMATOCRIT 40.3 % (36-48); HEMOGLOBIN 13.4 g/dL (12.0-16.0); LYMPHOCYTES # (AUTO) 2.6 K/uL (2.5-16.5); LYMPHOCYTES % (AUTO) 28.6 % (20.5-51.1); MEAN CORPUSCULAR HEMOGLOBIN 29 pg (27-31); MEAN CORPUSCULAR HGB CONC 33 g/dL (33-37); MEAN CORPUSCULAR VOLUME 87.5 fL (80-94); MONOCYTES # (AUTO) 0.7 K/uL (0.8-1.0); MONOCYTES % (AUTO) 7.4 % (1.7-9.3); NEUTROPHILS # (AUTO) 5.7 K/uL (1.8-7.7); NEUTROPHILS % (AUTO) 61.8 % (42.2-75.2); PLATELET COUNT (AUTO) 171 K/uL (140-450); RED BLOOD CELL COUNT(AUTO) 4.61 MIL/uL (4.20-5.40); RED CELL DISTRIBUTION WIDTH 12.3 % (11.6-13.7); WHITE BLOOD COUNT (AUTO) 9.2 K/uL (4.8-10.8)
[2020-11-22 17:41] LABS: APPEARANCE,URINE CLEAR (CLEAR); BILIRUBIN,URINE NEGATIVE (NEGATIVE); BLOOD, URINE NEGATIVE (NEGATIVE); COLOR,URINE ORANGE (YELLOW); LEUKOCYTE ESTERASE ,URINE NEGATIVE (NEGATIVE); NITRITE, URINE POSITIVE (NEGATIVE); PH,URINE 6.5 (5.0-9.0); UGLUCOSE TRACE (NEGATIVE)
[2020-11-22 17:48] LABS: ALBUMIN 3.8 g/dL (3.4-5.0); ANION GAP 12.4 (8-16); CARBON DIOXIDE 27.2 mmol/L (21-32); POTASSIUM 3.6 mmol/L (3.5-5.1); TOTAL BILIRUBIN 0.3 mg/dL (0.0-1.0)
[2020-11-22] MEDS ORDERED: CEPH-588 PO (18:40)
[2020-11-22] MEDS ORDERED: IBUP-2213 PO (18:40)
[2020-11-22] MEDS ORDERED: PYR100 PO (18:40)
[2020-11-22 19:07] VITALS: BP 148/95
--- NOTE | 2020-11-24 20:17 | NUR ---
LATE ENTRY- 0.9% NS BOLUS DISCONTINUED AT 1840 AND ROCEPHIN IVPB DISCONTINUED AT 1740
--- NOTE | 2020-12-01 11:46 | NUR ---
LATE ENTRY -- [facility] END TIME OF INFUSION IS 1840.
== END 2020-11-22 19:00 | disposition home or self-care (01) ==
LOC: MED 16:39
DX: N39.0 Urinary tract infection, site not specified (principal); R03.0 Elevated blood-pressure reading, without diagnosis of hypertension; Z88.5 Allergy status to narcotic agent; Z79.899 Other long term (current) drug therapy
CPT/HCPCS: 36415; 74176; 80053; 81003; 83690; 85025; 96365; 96375; 99284; J0696; J1885; J7030

== ENCOUNTER 2021-03-21 16:32 | Emergency (ER) | payer OTHER ==
[~2021-03-21] VITALS: Ht 175.3 cm; Wt 79.8 kg
[~2021-03-21 16:32] MED LIST changes: +CEPH-588 PO; +IBUP-2213 PO; +PYR100 PO
[2021-03-21 16:36] VITALS: BP 142/88
--- NOTE | 2021-03-21 16:46 | NUR ---
TOSIN WINTER AT BEDSIDE EXAMINING PT
--- NOTE | 2021-03-21 16:47 | NUR ---
XRAY AT BEDSIDE
[2021-03-21] MEDS ORDERED: IBUP-2213 PO (17:21)
--- NOTE | 2021-03-21 17:30 | NUR ---
NO NURSING INTERVENTIONS IMPLEMENTED
[2021-03-21 17:31] VITALS: BP 142/88
== END 2021-03-21 17:31 | disposition home or self-care (01) ==
LOC: MED 16:32
DX: S50.01XA Contusion of right elbow, initial encounter (principal); Z88.5 Allergy status to narcotic agent; Z79.899 Other long term (current) drug therapy; Z79.82 Long term (current) use of aspirin; W01.198A Fall on same level from slipping, tripping and stumbling with subsequent striking against other object, initial encounter; Y93.89 Activity, other specified; Y92.098 Other place in other non-institutional residence as the place of occurrence of the external cause; Y99.8 Other external cause status
CPT/HCPCS: 73080; 99283; Q0092

== ENCOUNTER 2021-04-22 13:09 | Emergency (ER) | payer OTHER ==
[~2021-04-22] VITALS: Ht 175.3 cm; Wt 80.7 kg
[2021-04-22 13:18] VITALS: BP 180/104
--- NOTE | 2021-04-22 13:23 | NUR ---
PT SENT TO LOBBY
[2021-04-22] MEDS ORDERED: DICL20GE TP (14:22)
[2021-04-22] MEDS ORDERED: NAPR-54 PO (14:22)
[2021-04-22 14:33] VITALS: BP 180/104
--- NOTE | 2021-04-22 14:34 | NUR ---
Patient discharged with v/s stable. Written and verbal after care instructions given and explained. Patient alert, oriented and verbalized understanding of instructions. Ambulatory with steady gait. All questions addressed prior to discharge. ID band removed. Patient advised to follow up with PMD. Rx of DICLOFENAC, NAPROXEN given. Patient educated on indication of medication including possible reaction and side effects. Opportunity to ask questions provided and answered.
== END 2021-04-22 14:34 | disposition home or self-care (01) ==
LOC: MED 13:09
DX: M17.12 Unilateral primary osteoarthritis, left knee (principal); Z90.49 Acquired absence of other specified parts of digestive tract; Z79.1 Long term (current) use of non-steroidal anti-inflammatories (NSAID); Z79.899 Other long term (current) drug therapy; Z79.2 Long term (current) use of antibiotics; Z88.5 Allergy status to narcotic agent
CPT/HCPCS: 73562; 99283

== ENCOUNTER 2021-08-03 09:53 | Emergency (ER) | payer OTHER ==
[~2021-08-03] VITALS: Ht 175.3 cm; Wt 77.6 kg
[~2021-08-03 09:53] MED LIST changes: +DICL20GE TP
[2021-08-03 10:00] VITALS: BP 130/76
[2021-08-03 12:39] LABS: BASOPHILS % (AUTO) 0.6 % (0.0-2.0); EOSINOPHILS # (AUTO) 0.1 K/uL (0-0.4); EOSINOPHILS % (AUTO) 0.9 % (0.0-4.0); HEMATOCRIT 41.9 % (36-48); HEMOGLOBIN 13.8 g/dL (12.0-16.0); LYMPHOCYTES # (AUTO) 1.9 K/uL (2.5-16.5); LYMPHOCYTES % (AUTO) 23.4 % (20.5-51.1); MEAN CORPUSCULAR HEMOGLOBIN 29 pg (27-31); MEAN CORPUSCULAR HGB CONC 33 g/dL (33-37); MEAN CORPUSCULAR VOLUME 87.2 fL (80-94); MONOCYTES # (AUTO) 0.4 K/uL (0.8-1.0); MONOCYTES % (AUTO) 5.1 % (1.7-9.3); NEUTROPHILS # (AUTO) 5.6 K/uL (1.8-7.7); PLATELET COUNT (AUTO) 193 K/uL (140-450); RED CELL DISTRIBUTION WIDTH 12.6 % (11.6-13.7); WHITE BLOOD COUNT (AUTO) 7.9 K/uL (4.8-10.8)
[2021-08-03 12:45] LABS: ALBUMIN 3.8 g/dL (3.4-5.0); BILIRUBIN,DIRECT 0.1 mg/dL (0.0-0.3); TOTAL BILIRUBIN 0.2 mg/dL (0.0-1.0)
[2021-08-03 12:55] LABS: ANION GAP 13.2 (8-16); CARBON DIOXIDE 27.6 mmol/L (21-32); CREATININE 0.9 mg/dL (0.6-1.3); POTASSIUM 3.8 mmol/L (3.5-5.1)
--- NOTE | 2021-08-03 13:00 | NUR ---
PT CALLED TO NOTIFY US THAT SHE HAS LEFT THE LOBBY AND WILL NOT BE RETURNING.
--- NOTE | 2021-08-03 15:27 | NUR ---
novel and flu swabbed at this time. pt states she took wristband off and left it in [employer] car
[2021-08-03 15:28] VITALS: BP 130/76
== END 2021-08-03 15:28 | disposition home or self-care (01) ==
LOC: MED 09:53
DX: R11.0 Nausea (principal); Z20.822 Contact with and (suspected) exposure to COVID-19; R51.9 Headache, unspecified; M79.10 Myalgia, unspecified site; Z79.899 Other long term (current) drug therapy; Z79.82 Long term (current) use of aspirin; Z88.5 Allergy status to narcotic agent; Z90.49 Acquired absence of other specified parts of digestive tract
CPT/HCPCS: 36415; 71045; 80048; 80076; 83690; 84484; 85025; 87804; 93005; 99285; U0003

== ENCOUNTER 2021-09-02 10:13 | Emergency (ER) | payer OTHER ==
[~2021-09-02] VITALS: Ht 172.7 cm; Wt 65.8 kg
[2021-09-02 10:18] VITALS: BP 170/80
--- NOTE | 2021-09-02 10:49 | NUR ---
ASSUMED CARE OF PATIENT AT THIS TIME
--- NOTE | 2021-09-02 10:50 | NUR ---
ALL SPECIMEN SAMPLES COLLECTED AND WALKED DOWN TO LAB
[2021-09-02] MEDS ORDERED: [UNRECOGNIZED DRUG - CODE] MM (12:59)
--- NOTE | 2021-09-02 13:25 | NUR ---
Patient discharged with v/s stable. Written and verbal after care instructions given and explained. Patient alert, oriented and verbalized understanding of instructions. Ambulatory with steady gait. All questions addressed prior to discharge. ID band removed. Patient advised to follow up with PMD. Rx of Benzocaine/Menthol Lisa given. Patient educated on indication of medication including possible reaction and side effects. Opportunity to ask questions provided and answered.
[2021-09-02 13:27] VITALS: BP 151/93
--- NOTE | 2021-09-02 13:30 | NUR ---
NO NURSING INTERVENTIONS PERFORMED
== END 2021-09-02 13:25 | disposition home or self-care (01) ==
LOC: MED 10:13
DX: J02.9 Acute pharyngitis, unspecified (principal); Z20.822 Contact with and (suspected) exposure to COVID-19; Z88.5 Allergy status to narcotic agent; Z90.49 Acquired absence of other specified parts of digestive tract; Z90.710 Acquired absence of both cervix and uterus; Z89.429 Acquired absence of other toe(s), unspecified side; Z79.899 Other long term (current) drug therapy; Z79.82 Long term (current) use of aspirin
CPT/HCPCS: 87081; 99283

== ENCOUNTER 2021-10-17 16:07 | Emergency (ER) | payer OTHER ==
[~2021-10-17] VITALS: Ht 175.3 cm; Wt 77.7 kg
[~2021-10-17 16:07] MED LIST changes: +[UNRECOGNIZED DRUG - CODE] MM
[2021-10-17 16:22] VITALS: BP 154/98
[2021-10-17] MEDS ORDERED: KETOROLAC 30 MG/ML VIAL IM ONE (16:55)
[2021-10-17] MEDS ORDERED: IBUP-2213 PO (18:10)
[2021-10-17 18:14] VITALS: BP 154/98
== END 2021-10-17 18:14 | disposition home or self-care (01) ==
LOC: MED 16:07
DX: M25.561 Pain in right knee (principal); Z79.899 Other long term (current) drug therapy; Z79.82 Long term (current) use of aspirin; Z88.5 Allergy status to narcotic agent
CPT/HCPCS: 73562; 93971; 96372; 99284; J1885; Q0092

== ENCOUNTER 2021-11-16 13:23 | Emergency (ER) | payer OTHER ==
[~2021-11-16] VITALS: Ht 172.7 cm; Wt 76.4 kg
[2021-11-16 13:27] VITALS: BP 130/95
--- NOTE | 2021-11-16 15:13 | NUR ---
1452 - XRAY ATTEMPTED TO CALL PATIENT NO ANSWER 1512 - XRAY ATTEMPTED TO CALL PATIENT NO ANSWER
--- NOTE | 2021-11-16 15:33 | NUR ---
ATTEMPTED TO CALL PATIENT, NO ANSWER AT THIS TIME
--- NOTE | 2021-11-16 15:33 | NUR ---
PATIENT LEFT WITHOUT BEING SEEN BY TOSIN LEMUS MADE AWARE. NO FURTHER CARE PROVIDED FOR PATIENT.
== END 2021-11-16 14:52 | disposition left against medical advice (07) ==
LOC: MED 13:23
DX: R06.00 Dyspnea, unspecified (principal); Z53.21 Procedure and treatment not carried out due to patient leaving prior to being seen by health care provider

== ENCOUNTER 2022-02-03 12:50 | Emergency (ER) | payer OTHER ==
[~2022-02-03] VITALS: Ht 172.7 cm; Wt 75.5 kg
[2022-02-03 12:56] VITALS: BP 173/99
--- NOTE | 2022-02-03 13:00 | NUR ---
C/O LEFT FOOT PAIN/ NUMBNESS X 3 DAYS. BLOOD SUGAR 122, BP 173/99 AT THIS TIME. PEDAL PULSE + LEFT FOOT. PMH: LEFT 5TH TOE AMPUTATION
[2022-02-03] MEDS ORDERED: IBUP-2213 PO (14:34)
[2022-02-03 15:47] VITALS: BP 170/77
--- NOTE | 2022-02-03 15:49 | NUR ---
Patient discharged with v/s stable. Written and verbal after care instructions ABOUT FOOT PAIN given and explained to parent/guardian. Parent/Guardian verbalized understanding of instructions. Ambulatory with steady gait. All questions addressed prior to discharge. ID band removed. Parent/Guardian advised to follow up with PMD. Rx of IBUPROFEN given. Parent/Guardian educated on indication of medication including possible reaction and side effects. Opportunity to ask questions provided and answered.
== END 2022-02-03 15:49 | disposition home or self-care (01) ==
LOC: MED 12:50
DX: M79.672 Pain in left foot (principal); R20.2 Paresthesia of skin; R03.0 Elevated blood-pressure reading, without diagnosis of hypertension; Z88.5 Allergy status to narcotic agent; Z79.899 Other long term (current) drug therapy; Z98.890 Other specified postprocedural states; Z79.82 Long term (current) use of aspirin
CPT/HCPCS: 73630; 99283

== ENCOUNTER 2022-02-25 12:04 | Emergency (ER) | payer OTHER ==
[~2022-02-25] VITALS: Ht 175.3 cm; Wt 74.8 kg
--- NOTE | 2022-02-25 12:12 | NUR ---
PT AMBULATED TO BED 01.
[2022-02-25 12:14] VITALS: BP 137/77
[2022-02-25 12:17] VITALS: BP 137/77
--- NOTE | 2022-02-25 12:17 | NUR ---
WALKED IN C/O R SHOULDER PAIN RADIATING TO R THIGH ONSET 3 WKS AGO AND GOT WORSE SINCE 3 DAYS AGO. DENIES FALL OR INJURY. AAOX4, AMBULATORY PMH: DENIES
[2022-02-25] MEDS ORDERED: ACETAMINOPHEN EXTRA STRENGTH 500 MG TAB PO ONE (12:30)
--- NOTE | 2022-02-25 12:43 | NUR ---
PT BACK FROM XR
== END 2022-02-25 13:20 | disposition home or self-care (01) ==
LOC: MED 12:04
DX: M25.511 Pain in right shoulder (principal); Z88.5 Allergy status to narcotic agent; Z79.82 Long term (current) use of aspirin; Z79.899 Other long term (current) drug therapy; Z90.49 Acquired absence of other specified parts of digestive tract; Z90.710 Acquired absence of both cervix and uterus
CPT/HCPCS: 73030; 99283

== ENCOUNTER 2022-03-03 16:06 | Emergency (ER) | payer OTHER ==
[~2022-03-03] VITALS: Ht 175.3 cm; Wt 75.7 kg
[2022-03-03 16:29] VITALS: BP 140/97
[2022-03-03] MEDS ORDERED: DICL20GE TP (18:10)
[2022-03-03] MEDS ORDERED: ACET-8386 PO (18:10)
[2022-03-03] MEDS ORDERED: IBUPROFEN 600 MG TAB PO ONE (18:20)
--- NOTE | 2022-03-03 18:26 | NUR ---
unable to locate pt to apply venita wrap
--- NOTE | 2022-03-03 18:30 | NUR ---
PT LEFT WITH OUT DISCHARGE PAPER WORK UNABLE TO REASSESS VSPatient discharged with v/s stable. Written and verbal after care instructions given and explained. Patient alert, oriented and verbalized understanding of instructions. Ambulatory with steady gait. All questions addressed prior to discharge. ID band removed. Patient advised to follow up with PMD. Rx of NORCO,VOLTAREN given. Patient educated on indication of medication including possible reaction and side effects. Opportunity to ask questions provided and answered.
== END 2022-03-03 18:30 | disposition home or self-care (01) ==
LOC: MED 16:06
DX: M25.561 Pain in right knee (principal); R03.0 Elevated blood-pressure reading, without diagnosis of hypertension; Z88.5 Allergy status to narcotic agent; Z79.899 Other long term (current) drug therapy; Z79.82 Long term (current) use of aspirin
CPT/HCPCS: 99283

== ENCOUNTER 2022-05-12 12:58 | Emergency (ER) | payer OTHER ==
[~2022-05-12 12:58] MED LIST changes: +ACET-8386 PO
--- NOTE | 2022-05-12 14:25 | NUR ---
CALLEDX1. NO SHOW.
--- NOTE | 2022-05-12 14:25 | NUR ---
PATIENT LEFT WITHOUT BEING SEEN BY DR. CRUZ. NO FURTHER CARE PROVIDED FOR PATIENT.
--- NOTE | 2022-05-12 14:45 | NUR ---
CALLEDX2. NO SHOW.
--- NOTE | 2022-05-12 15:11 | NUR ---
CALLED X 3. NO SHOW
== END 2022-05-12 14:25 | disposition left against medical advice (07) ==
LOC: MED 12:58
DX: M25.569 Pain in unspecified knee (principal); Z53.21 Procedure and treatment not carried out due to patient leaving prior to being seen by health care provider

== ENCOUNTER 2022-05-15 09:13 | Emergency (ER) | payer OTHER ==
[~2022-05-15] VITALS: Ht 175.3 cm; Wt 72.8 kg
--- NOTE | 2022-05-15 09:21 | NUR ---
Patient ambulated to bed 7 with steady gait.
[2022-05-15 09:24] VITALS: BP 146/81
--- NOTE | 2022-05-15 09:42 | NUR ---
57 y/o female bib self with c/o right leg pain x 8 days s/p surgery for meniscus repair to right knee. Patient was informed if pain increased to go to ER for further evaluation. Patient is noted with multiple bruises to right calf and right thigh. Patient's leg is noted to be slightly swollen. Patient has 8/10 pain to back of leg. +sensation, + movement, + color to bilateral feet. Medical History: Denies ALLERGY: MORPHINE
--- NOTE | 2022-05-15 09:59 | NUR ---
Dr. Hunter evaluating patient at bedside.
--- NOTE | 2022-05-15 10:54 | NUR ---
Ultrasound at bedside.
[2022-05-15 11:30] VITALS: BP 119/76
--- NOTE | 2022-05-15 12:25 | NUR ---
Patient discharged with v/s stable. Written and verbal after care instructions given. Patient verbalized understanding. Ambulatory with steady gait. All questions addressed prior to discharge. Advised to follow up with PMD. Discharged by Dr. Hunter.
--- NOTE | 2022-05-15 12:26 | NUR ---
Chart checked and completed. The patient's care was reviewed and supervised by Rosana Davis RN.
== END 2022-05-15 12:25 | disposition home or self-care (01) ==
LOC: MED 09:13
DX: M71.21 Synovial cyst of popliteal space [Baker], right knee (principal); I10 Essential (primary) hypertension; Z88.5 Allergy status to narcotic agent; Z79.899 Other long term (current) drug therapy; Z79.82 Long term (current) use of aspirin; Z98.890 Other specified postprocedural states
CPT/HCPCS: 93971; 99284; Q0092

== ENCOUNTER 2022-08-24 10:52 | Emergency (ER) | payer OTHER ==
[~2022-08-24] VITALS: Ht 175.3 cm; Wt 73.3 kg
[~2022-08-24 10:52] MED LIST changes: -ACET-8386 PO; +ACET-8905 PO
[2022-08-24 11:14] VITALS: BP 148/89
--- NOTE | 2022-08-24 12:05 | NUR ---
C/O 02/24 RIGHT SHOULDER PAIN RADIATING TO RIGHT ARM X2 MONTHS. PMH: DENIES
--- NOTE | 2022-08-24 13:07 | NUR ---
PATIENT CALLED 3 TIMES BY PA RIVAS NO ANSWER PATIENT LEFT WITHOUT BEING SEEN BY PA RIVAS. NO FURTHER CARE PROVIDED FOR PATIENT.
== END 2022-08-24 13:07 | disposition left against medical advice (07) ==
LOC: MED 10:52
DX: M25.511 Pain in right shoulder (principal); Z53.21 Procedure and treatment not carried out due to patient leaving prior to being seen by health care provider

== ENCOUNTER 2022-09-23 11:00 | Emergency (ER) | payer OTHER ==
[~2022-09-23] VITALS: Ht 175.3 cm; Wt 74.4 kg
[2022-09-23 11:10] VITALS: BP 131/83
[2022-09-23] MEDS ORDERED: IBUPROFEN 800 MG TAB PO ONE (12:15)
--- NOTE | 2022-09-23 12:24 | NUR ---
BIB SELF C/O 8/10 RIGHT ARM PAINX3 MONTHS, DENIES ANY TRAUMA/INJURY. TOOK TYLENOL FOR PAIN. FULL ROM NOTED ALLERGY: MORPHINE PMH: DENIES
--- NOTE | 2022-09-23 13:10 | NUR ---
PATIENT ELOPED FROM FACILITY. DISCHARGE INSTRUCTIONS NOT GIVEN TO PATIENT. AND TOSIN REYES NOTIFIED.
== END 2022-09-23 13:10 | disposition left against medical advice (07) ==
LOC: MED 11:00
DX: M79.601 Pain in right arm (principal); R03.0 Elevated blood-pressure reading, without diagnosis of hypertension; Z79.899 Other long term (current) drug therapy; Z79.82 Long term (current) use of aspirin; Z88.5 Allergy status to narcotic agent
CPT/HCPCS: 99282

== ENCOUNTER 2023-02-23 11:57 | Emergency (ER) | payer OTHER ==
[~2023-02-23] VITALS: Ht 175.3 cm; Wt 73.1 kg
[2023-02-23 12:14] VITALS: BP 159/111; PULSE 81; RESP 20; TEMP 97.4; O2SAT 98
--- NOTE | 2023-02-23 13:00 | NUR ---
QUIANA WRAP X 1 TO R WRIST. + CMS
[2023-02-23] MEDS ORDERED: LID5T TP (13:18)
--- NOTE | 2023-02-23 13:33 | NUR ---
Patient discharged with v/s stable. Written and verbal after care instructions given and explained. Patient alert, oriented and verbalized understanding of instructions. Ambulatory with steady gait. All questions addressed prior to discharge. ID band removed. Patient advised to follow up with PMD. Rx of LIDOCAINE PATCH given. Patient educated on indication of medication including possible reaction and side effects. Opportunity to ask questions provided and answered.
== END 2023-02-23 13:20 | disposition home or self-care (01) ==
LOC: MED 11:57
DX: S60.211A Contusion of right wrist, initial encounter (principal); Z88.5 Allergy status to narcotic agent; Z79.899 Other long term (current) drug therapy; W18.30XA Fall on same level, unspecified, initial encounter; Y93.89 Activity, other specified; Y92.89 Other specified places as the place of occurrence of the external cause; Y99.8 Other external cause status
CPT/HCPCS: 73110; 99283

== ENCOUNTER 2023-05-01 16:29 | Emergency (ER) | payer OTHER ==
[~2023-05-01] VITALS: Ht 175.3 cm; Wt 73.5 kg
[~2023-05-01 16:29] MED LIST changes: +LID5T TP
[2023-05-01 16:53] VITALS: BP 133/94; PULSE 90; RESP 16; TEMP 98; O2SAT 97
[2023-05-01] MEDS ORDERED: IBUPROFEN 600 MG TAB PO ONE (17:20)
== END 2023-05-01 18:46 | disposition home or self-care (01) ==
LOC: MED 16:29
DX: G89.29 Other chronic pain (principal); M25.511 Pain in right shoulder; M25.562 Pain in left knee; Z79.899 Other long term (current) drug therapy; Z79.82 Long term (current) use of aspirin; Z79.1 Long term (current) use of non-steroidal anti-inflammatories (NSAID); Z79.2 Long term (current) use of antibiotics; Z88.5 Allergy status to narcotic agent
CPT/HCPCS: 73030; 73562; 99284

== ENCOUNTER 2023-06-23 14:18 | Emergency (ER) | payer OTHER ==
[~2023-06-23] VITALS: Ht 175.3 cm; Wt 72.6 kg
[2023-06-23 14:22] VITALS: BP 142/83; PULSE 88; RESP 18; TEMP 98.5; O2SAT 98
[2023-06-23] MEDS ORDERED: BENZ-300 PO (14:35)
== END 2023-06-23 16:01 | disposition home or self-care (01) ==
LOC: MED 14:18
DX: J02.9 Acute pharyngitis, unspecified (principal); R03.0 Elevated blood-pressure reading, without diagnosis of hypertension; Z79.899 Other long term (current) drug therapy; Z79.1 Long term (current) use of non-steroidal anti-inflammatories (NSAID); Z79.82 Long term (current) use of aspirin; Z79.2 Long term (current) use of antibiotics; Z88.5 Allergy status to narcotic agent
CPT/HCPCS: 99282

== ENCOUNTER 2023-08-14 16:46 | Emergency (ER) | payer OTHER ==
[~2023-08-14] VITALS: Ht 175.3 cm; Wt 72.6 kg
[~2023-08-14 16:46] MED LIST changes: +BENZ-300 PO
[2023-08-14 17:02] VITALS: BP 120/77; PULSE 97; RESP 18; TEMP 98.5; O2SAT 98
[2023-08-14] MEDS ORDERED: IBUP-1842 PO (18:19)
== END 2023-08-14 18:34 | disposition home or self-care (01) ==
LOC: MED 16:46
DX: M25.562 Pain in left knee (principal); Z88.5 Allergy status to narcotic agent; Z79.899 Other long term (current) drug therapy
CPT/HCPCS: 29505; 73562; 99283; Q0092

== ENCOUNTER 2024-03-30 15:54 | Emergency (ER) | payer OTHER ==
[~2024-03-30 15:54] MED LIST changes: +IBUP-1842 PO; +NAPR-337 PO; -NAPR-54 PO
== END 2024-03-30 17:06 | disposition left against medical advice (07) ==
LOC: MED 15:54
DX: M79.603 Pain in arm, unspecified (principal); Z53.21 Procedure and treatment not carried out due to patient leaving prior to being seen by health care provider